=== PATIENT | female | born 1965 | race Caucasian/White ===

== ENCOUNTER → 2020-05-02 | Outpatient (CLI) | payer OTHER ==
[~2020-05-02] MED LIST: ALBU2.5V8 IH; ESTR42.53 VG; FLUT1DIS IH
== END | disposition home or self-care (01) ==
LOC: LAB 04:05
PROVIDERS: ATTEND Nurse Anesthetist, Certified Registered
DX: Z01.818 Encounter for other preprocedural examination (principal); Z11.59 Encounter for screening for other viral diseases; Z13.818 Encounter for screening for other digestive system disorders
CPT/HCPCS: 36415; U0003

== ENCOUNTER → 2020-05-06 | Day surgery (SDC) | payer OTHER ==
[~2020-05-06] MED LIST changes: +IPRATRPIUM/ALBUTEROL 0.5/2.5MG 3 ML NEBU. NEB PRN; +MIDAZOLAM HCL PF 2 MG/2 ML VIAL. IV ONE; +ONDANSETRON PF 4 MG/2 ML VIAL. IV PRN; +PROPOFOL 10,000 MCG/ML (20ML) VIAL IV ONE
[2020-05-06] MEDS: IV RINGERS SOLUTION,LACTATED 1,000 ML IV SCH (12:29)
[2020-05-06 13:40] VITALS: BP 109/57
== END | disposition home or self-care (01) ==
LOC: SURG 11:38
PROVIDERS: ATTEND Internal Medicine Gastroenterology
DX: Z12.11 Encounter for screening for malignant neoplasm of colon (principal); K64.1 Second degree hemorrhoids; K57.30 Diverticulosis of large intestine without perforation or abscess without bleeding; K63.89 Other specified diseases of intestine; J45.909 Unspecified asthma, uncomplicated; Z79.899 Other long term (current) drug therapy; Z98.890 Other specified postprocedural states
CPT/HCPCS: 45378; J2704; J7120